=== PATIENT | female | born 1940 | race Caucasian/White ===

== ENCOUNTER 2016-07-18 11:06 | Emergency (ER) | payer MEDICARE ==
[~2016-07-18 11:06] MED LIST: ACETAMINOPHEN325 MG PO; ASPIRIN EC81 MG PO; DALIRESP500 MCG PO; IPRAT-ALBUT 0.5-3 ML NEB; LEVAQUIN750 MG PO; LIPITOR20 MG PO; LOPRESSOR100 MG PO; NEURONTIN100 MG PO; NICOTINE TRANSD21 MG TOP; SYMBICORT 80-10.2 GM IH; XARELTO20 MG PO
[2016-07-22] MEDS ORDERED: DALIRESP500 MCG PO (09:16)
[2016-07-22] MEDS ORDERED: NORCO 5-325 TA1 EACH PO (09:16)
[2016-07-22] MEDS ORDERED: NEURONTIN100 MG PO (09:17)
[2016-07-22] MEDS ORDERED: SYMBICORT 80-10.2 GM IH (09:17)
[2016-07-22] MEDS ORDERED: ASPIRIN EC81 MG PO (09:17)
[2016-07-22] MEDS ORDERED: ZESTRIL10 MG PO (09:18)
[2016-07-22] MEDS ORDERED: LIPITOR20 MG PO (09:18)
[2016-07-22] MEDS ORDERED: BROVANA15 MCG/2 M NEB (09:18)
[2016-07-22] MEDS ORDERED: PULMICORT0.5 MG/2 M NEB (09:18)
[2016-07-22] MEDS ORDERED: GLUCOPHAGE500 MG PO (09:19)
[2016-07-22] MEDS ORDERED: PROAIR HFA8.5 GM IH (09:19)
[2016-07-22] MEDS ORDERED: COREG6.25 MG PO (09:19)
[2016-07-22] MEDS ORDERED: LASIX20 MG PO (09:20)
[2016-07-22] MEDS ORDERED: KLONOPIN0.5 MG PO (09:20)
[2016-07-22] MEDS ORDERED: ACETAMINOPHEN325 MG PO (09:20)
== END 2016-07-18 15:18 | disposition critical access hospital (66) ==
LOC: ER 11:06
DX: D64.9 Anemia, unspecified (principal); K92.1 Melena; J44.9 Chronic obstructive pulmonary disease, unspecified; I48.91 Unspecified atrial fibrillation; I10 Essential (primary) hypertension; E11.9 Type 2 diabetes mellitus without complications; Z79.84 Long term (current) use of oral hypoglycemic drugs; Z88.5 Allergy status to narcotic agent
CPT/HCPCS: 36415; 36430; 96374; P9021

== ENCOUNTER 2016-07-18 11:06 | Inpatient (IN) | payer MEDICARE ==
--- NOTE | 2016-07-18 19:01 | NUR ---
1615 PNEUMATIC COMPRESSION DEVICE TO BLE PER MD ORDER
--- NOTE | 2016-07-20 13:42 | NUR ---
1220: PT TAKEN TO OR FOR PROCEDURE; PT TAKEN BY OR STAFF TO OR BY BED. VSS. PT AWAKE, AWARE AND AGREEABLE.
--- NOTE | 2016-07-20 15:15 | NUR ---
1450: PT FROM OR. VSS. PT ALERT, DENIES PAIN/NAUSEA. DIET TOLERATED, PT WANTS SOLID FOOD. ORDERS NOTED.
[2016-07-22] MEDS ORDERED: NORCO 5-325 TA1 EACH PO (09:16)
[2016-07-22] MEDS ORDERED: DALIRESP500 MCG PO (09:16)
[2016-07-22] MEDS ORDERED: SYMBICORT 80-10.2 GM IH (09:17)
[2016-07-22] MEDS ORDERED: ASPIRIN EC81 MG PO (09:17)
[2016-07-22] MEDS ORDERED: NEURONTIN100 MG PO (09:17)
[2016-07-22] MEDS ORDERED: BROVANA15 MCG/2 M NEB (09:18)
[2016-07-22] MEDS ORDERED: ZESTRIL10 MG PO (09:18)
[2016-07-22] MEDS ORDERED: PULMICORT0.5 MG/2 M NEB (09:18)
[2016-07-22] MEDS ORDERED: LIPITOR20 MG PO (09:18)
[2016-07-22] MEDS ORDERED: PROAIR HFA8.5 GM IH (09:19)
[2016-07-22] MEDS ORDERED: GLUCOPHAGE500 MG PO (09:19)
[2016-07-22] MEDS ORDERED: COREG6.25 MG PO (09:19)
[2016-07-22] MEDS ORDERED: LASIX20 MG PO (09:20)
[2016-07-22] MEDS ORDERED: ACETAMINOPHEN325 MG PO (09:20)
[2016-07-22] MEDS ORDERED: KLONOPIN0.5 MG PO (09:20)
== END 2016-07-21 15:45 | disposition home health service (06) | DRG 378 ==
LOC: ER 11:06 → MED 15:19
PROVIDERS: ADMIT Internal Medicine
PROC: 30233N1 Transfusion of Nonautologous Red Blood Cells into Peripheral Vein, Percutaneous Approach (ICD-10-PCS; 2016-07-18)
PROC: 0DJD8ZZ Inspection of Lower Intestinal Tract, Via Natural or Artificial Opening Endoscopic (ICD-10-PCS; principal; 2016-07-20)
PROC: 0DB68ZX Excision of Stomach, Via Natural or Artificial Opening Endoscopic, Diagnostic (ICD-10-PCS; 2016-07-20)
DX: K57.91 Diverticulosis of intestine, part unspecified, without perforation or abscess with bleeding (principal); D62 Acute posthemorrhagic anemia; I50.22 Chronic systolic (congestive) heart failure; K64.9 Unspecified hemorrhoids; K29.70 Gastritis, unspecified, without bleeding; I48.0 Paroxysmal atrial fibrillation; J44.9 Chronic obstructive pulmonary disease, unspecified; F17.210 Nicotine dependence, cigarettes, uncomplicated; E11.9 Type 2 diabetes mellitus without complications; Z99.81 Dependence on supplemental oxygen; Z85.21 Personal history of malignant neoplasm of larynx; I11.0 Hypertensive heart disease with heart failure; M19.90 Unspecified osteoarthritis, unspecified site; Z79.84 Long term (current) use of oral hypoglycemic drugs; Z79.82 Long term (current) use of aspirin; Z79.899 Other long term (current) drug therapy; Z88.5 Allergy status to narcotic agent; Z83.3 Family history of diabetes mellitus
CPT/HCPCS: 36415; 73706; 97162-GP; 97166; J1610; J2704; P9021; Q9967

== ENCOUNTER 2016-09-13 17:25 | Emergency (ER) | payer MEDICARE ==
[~2016-09-13 17:25] MED LIST changes: +BROVANA15 MCG/2 M NEB; +COREG6.25 MG PO; +GLUCOPHAGE500 MG PO; +KLONOPIN0.5 MG PO; +LASIX20 MG PO; +NORCO 5-325 TA1 EACH PO; +PROAIR HFA8.5 GM IH; +PULMICORT0.5 MG/2 M NEB; +ZESTRIL10 MG PO
== END 2016-09-14 01:39 | disposition short-term general hospital (02) ==
LOC: ER 17:25
DX: K92.2 Gastrointestinal hemorrhage, unspecified (principal); I10 Essential (primary) hypertension; J44.9 Chronic obstructive pulmonary disease, unspecified; F17.210 Nicotine dependence, cigarettes, uncomplicated; Z79.82 Long term (current) use of aspirin; Z79.84 Long term (current) use of oral hypoglycemic drugs; Z79.899 Other long term (current) drug therapy; Z88.5 Allergy status to narcotic agent; Z90.710 Acquired absence of both cervix and uterus; Z86.73 Personal history of transient ischemic attack (TIA), and cerebral infarction without residual deficits
CPT/HCPCS: 36415; 96365; 96366; 96375; 96376; Q9967

== ENCOUNTER 2016-10-24 09:49 | Emergency (ER) | payer MEDICARE | END 2016-10-24 12:22 | disposition critical access hospital (66) | LOC: ER 09:49 | DX: J44.1 Chronic obstructive pulmonary disease with (acute) exacerbation (principal); J18.9 Pneumonia, unspecified organism; D64.9 Anemia, unspecified; I10 Essential (primary) hypertension; Z99.81 Dependence on supplemental oxygen; Z79.84 Long term (current) use of oral hypoglycemic drugs; Z79.82 Long term (current) use of aspirin; Z79.899 Other long term (current) drug therapy; Z88.5 Allergy status to narcotic agent | CPT/HCPCS: 36415; 96365; 96375; P9021 ==

== ENCOUNTER 2016-10-24 09:49 | Inpatient (IN) | payer MEDICARE ==
[~2016-10-24] VITALS: Ht 175.3 cm; Wt 37.7 kg
== END 2016-10-28 14:10 | disposition home or self-care (01) | DRG 189 ==
LOC: ER 09:49 → MED 12:23
PROVIDERS: ADMIT Internal Medicine
PROC: 30233N1 Transfusion of Nonautologous Red Blood Cells into Peripheral Vein, Percutaneous Approach (ICD-10-PCS; principal; 2016-10-24)
PROC: 30233N1 Transfusion of Nonautologous Red Blood Cells into Peripheral Vein, Percutaneous Approach (ICD-10-PCS; 2016-10-25)
DX: J96.21 Acute and chronic respiratory failure with hypoxia (principal); J18.9 Pneumonia, unspecified organism; I47.1 Supraventricular tachycardia; I50.22 Chronic systolic (congestive) heart failure; J44.0 Chronic obstructive pulmonary disease with (acute) lower respiratory infection; D64.9 Anemia, unspecified; E87.6 Hypokalemia; I48.0 Paroxysmal atrial fibrillation; F17.210 Nicotine dependence, cigarettes, uncomplicated; H91.90 Unspecified hearing loss, unspecified ear; I11.0 Hypertensive heart disease with heart failure; E11.9 Type 2 diabetes mellitus without complications; Z85.21 Personal history of malignant neoplasm of larynx; M19.90 Unspecified osteoarthritis, unspecified site; Z79.82 Long term (current) use of aspirin; Z79.84 Long term (current) use of oral hypoglycemic drugs; Z79.899 Other long term (current) drug therapy; Z88.5 Allergy status to narcotic agent; Z90.710 Acquired absence of both cervix and uterus; Z83.3 Family history of diabetes mellitus; Z99.81 Dependence on supplemental oxygen; Z66 Do not resuscitate
CPT/HCPCS: 36415; 97162-GP; P9021; Q9967